=== PATIENT | female | born 1990 ===

== ENCOUNTER 2022-01-23 05:07 | Inpatient (IN) | payer OTHER ==
[2022-01-23] MEDS ORDERED: Tranexamic Acid 1,000 MG in Sodium Chloride 0.9% 100 ML IV PRN ×2 (05:17→09:27)
[2022-01-23] MEDS ORDERED: Sodium Chloride 0.9% 10 ML Syringe FLUSH PRN (05:17)
[2022-01-23] MEDS ORDERED: Lidocaine 1% 50 ML MDV INJECT PRN (05:17)
[2022-01-23] MEDS ORDERED: Carboprost Tromethamine 250 MCG/1 ML Amp IM PRN (05:17)
[2022-01-23] MEDS ORDERED: Sodium Chloride 0.9% 20 ML SDV IV PRN (05:17)
[2022-01-23] MEDS ORDERED: Water For Irrigation,Sterile 1,000 ML Container IRR PRN (05:17)
[2022-01-23] MEDS ORDERED: Methylergonovine 0.2 MG/1 ML Amp IM PRN ×2 (05:17→09:27)
[2022-01-23] MEDS ORDERED: Misoprostol 200 MCG Tab PO PRN (05:17)
[2022-01-23] MEDS ORDERED: Citric Acid/Sodium Citrate Solution 30 ML Cup PO ONE (05:17)
[2022-01-23] MEDS ORDERED: Sodium Chloride 0.9% 2.5 ML Syringe FLUSH PRN (05:17)
[2022-01-23] MEDS ORDERED: Lactated Ringers 1,000 ML IV SCH ×3 (05:30→09:30)
[2022-01-23] MEDS ORDERED: Oxytocin/0.9 % Sodium Chloride 30 UNIT/500 ML BAG IV SCH ×3 (05:30→09:30)
[2022-01-23] MEDS ORDERED: Phenylephrine 1% 10 MG/ML SDV ONE (05:51)
[2022-01-23] MEDS ORDERED: Dexmedetomidine 200 MCG/2 ML SDV ONE (05:51)
[2022-01-23] MEDS ORDERED: ceFAZolin 1 GM Vial ONE (05:51)
[2022-01-23] MEDS ORDERED: Oxytocin 10 Units/1 ML SDV ONE (05:51)
[2022-01-23] MEDS ORDERED: Dexamethasone 4 MG/ML 5 ML MDV ONE (05:51)
[2022-01-23] MEDS ORDERED: Lidocaine 2% 5 ML SDV ONE (05:51)
[2022-01-23] MEDS ORDERED: Ondansetron 4 MG/2 ML SDV ONE (05:51)
[2022-01-23] MEDS ORDERED: Morphine PF 10 MG/10 ML SDV ONE (05:52)
[2022-01-23] MEDS ORDERED: Ropivacaine 0.5% 5 MG/ML 30 ML SDV ONE (05:52)
[2022-01-23] MEDS ORDERED: fentaNYL 100 MCG/2 ML SDV ONE (05:52)
[2022-01-23] MEDS ORDERED: Water For Injection, Sterile 20 ML ONE (05:53)
[2022-01-23] MEDS ORDERED: Ketorolac 30 MG/ML SDV ONE (05:53)
[2022-01-23] MEDS ORDERED: fentaNYL 100 MCG/2 ML SDV IVPUSH PRN (06:46)
[2022-01-23] MEDS ORDERED: HYDROmorphone 2 MG/ML Syringe IVPUSH PRN (06:46)
[2022-01-23] MEDS ORDERED: fentaNYL 50 MCG/ML SDV IVPUSH PRN (06:46)
[2022-01-23] MEDS ORDERED: Naloxone 0.4 MG/ML SDV IVPUSH PRN (06:46)
[2022-01-23] MEDS ORDERED: Acetaminophen/oxyCODONE 325-5 MG Tab PO PRN ×2 (06:46→09:27)
[2022-01-23] MEDS ORDERED: Albuterol 0.083% 2.5 MG/3 ML Neb Soln NEB PRN (06:46)
[2022-01-23] MEDS ORDERED: Metoclopramide 10 MG/2 ML SDV IVPUSH PRN (06:46)
[2022-01-23] MEDS ORDERED: diphenhydrAMINE 50 MG/ML SDV IVPUSH PRN ×2 (06:46→09:27)
[2022-01-23] MEDS ORDERED: ePHEDrine 50 MG/ML SDV IVPUSH PRN (06:46)
[2022-01-23] MEDS ORDERED: Ondansetron 4 MG/2 ML SDV IVPUSH PRN ×3 (06:46→09:27)
[2022-01-23] MEDS ORDERED: Phenylephrine HCl In 0.9% NaCl 1 MG/10 ML Vial IVPUSH SCH (07:00)
[2022-01-23] MEDS ORDERED: Misoprostol 200 MCG Tab RECTAL PRN (09:27)
[2022-01-23] MEDS ORDERED: Oxytocin 10 Units/1 ML SDV IM PRN (09:27)
[2022-01-23] MEDS ORDERED: Lanolin 100% Cream 7 GM Tube TOP PRN (09:27)
[2022-01-23] MEDS ORDERED: Bisacodyl 10 MG Supp RECTAL PRN (09:27)
[2022-01-23] MEDS ORDERED: Acetaminophen 1,000 MG in Premix Bag 1 BAG IV ONE (15:15)
[2022-01-23] MEDS: Docusate Sodium 100 MG Cap PO SCH (21:00)
[2022-01-23] MEDS ORDERED: lamoTRIgine 100 MG Tab PO SCH (21:00)
[2022-01-24] MEDS: Ibuprofen 800 MG Tab PO PRN ×2 (05:19→21:56)
[2022-01-24] MEDS: Ferrous Sulfate 325 MG Tab PO SCH (09:44)
[2022-01-24] MEDS: Docusate Sodium 100 MG Cap PO SCH ×2 (09:44→20:39)
[2022-01-24] MEDS: Prenatal Multivitamin with Calcium/Folic Acid/Iron Tab PO SCH (09:44)
[2022-01-24] MEDS: Folic Acid 1 MG Tab PO SCH (10:10)
[2022-01-24] MEDS: Acetaminophen/oxyCODONE 325-5 MG Tab PO PRN (14:33)
[2022-01-24] MEDS: lamoTRIgine 100 MG Tab PO SCH (20:41)
[2022-01-24] MEDS ORDERED: lamoTRIgine 100 MG Tab PO SCH (21:00)
[2022-01-25] MEDS: Acetaminophen/oxyCODONE 325-5 MG Tab PO PRN (05:29)
[2022-01-25] MEDS ORDERED: Fluticasone NASAL Spray 16 GM Bottle NASBOTH SCH (09:00)
[2022-01-25] MEDS ORDERED: Cetirizine 10 MG Tab PO SCH (09:00)
[2022-01-25] MEDS: lamoTRIgine 100 MG Tab PO SCH (09:08)
[2022-01-25] MEDS: Folic Acid 1 MG Tab PO SCH (09:10)
[2022-01-25] MEDS: Prenatal Multivitamin with Calcium/Folic Acid/Iron Tab PO SCH (09:10)
[2022-01-25] MEDS: Docusate Sodium 100 MG Cap PO SCH (09:10)
[2022-01-25] MEDS: Ferrous Sulfate 325 MG Tab PO SCH (09:10)
[2022-01-25 13:03] VITALS: BP 132/69; PULSE 82
== END 2022-01-25 12:30 | disposition home or self-care (01) | DRG 787 ==
LOC: MW.OB 05:07
PROVIDERS: ADMIT Obstetrics & Gynecology; ATTEND Obstetrics & Gynecology
PROC: 10D00Z1 Extraction of Products of Conception, Low, Open Approach (ICD-10-PCS; principal; 2022-01-23)
PROC: 10D17ZZ Extraction of Products of Conception, Retained, Via Natural or Artificial Opening (ICD-10-PCS; 2022-01-23)
DX: O30.043 Twin pregnancy, dichorionic/diamniotic, third trimester (principal); O99.354 Diseases of the nervous system complicating childbirth; Z3A.38 38 weeks gestation of pregnancy; Z37.2 Twins, both liveborn; G40.909 Epilepsy, unspecified, not intractable, without status epilepticus; Z20.822 Contact with and (suspected) exposure to COVID-19; O32.9XX2 Maternal care for malpresentation of fetus, unspecified, fetus 2
CPT/HCPCS: 01961; 36415; 59025; 64488; 80175; 82803; 85014; 85018; 85025; 86592; 86850; 86900; 86901; A9270-GY; J0131; J0690; J1100; J1790; J1885; J2274; J2370; J2405; J2590; J2795; J3010; J7120; U0002